=== PATIENT | female | born 2000 | race Caucasian/White ===

== ENCOUNTER 2024-07-08 08:09 | Day surgery (SDC) | payer MEDICAID ==
[2024-07-08] VITALS (9 sets, daily range): BP systolic 10–134; BP diastolic 44–78; PULSE 35–99; RESP 12–60; O2SAT 98–100
[~2024-07-08] VITALS: Ht 154.9 cm; Wt 45.4 kg
[~2024-07-08 08:09] MED LIST: ERGO500093; MAGN400C PO
[2024-07-08] MEDS ORDERED: fentaNYL/PF 50MCG/1 ML 2ML syringe ONE ×2 (09:16→11:04)
[2024-07-08] MEDS ORDERED: MIDAZolam 1 MG/ML 5ML VIAL ONE ×2 (09:17→11:05)
[2024-07-08] MEDS ORDERED: diphenhydrAMINE 50 mg/ml inj ONE (09:17)
[2024-07-08] MEDS ORDERED: LIDOcaine 2% Viscous 15ml cup ONE (09:17)
[2024-07-08] MEDS ORDERED: LIDOcaine 2% (20mg/ml) 5ml vial ONE (11:05)
[2024-07-08] MEDS ORDERED: propofol inj 20 ML IV ONE ×2 (11:05→12:13)
== END 2024-07-08 13:07 | disposition home or self-care (01) ==
LOC: GI LAB 08:09
PROVIDERS: ATTEND Internal Medicine Gastroenterology
DX: R10.30 Lower abdominal pain, unspecified (principal); R14.0 Abdominal distension (gaseous); R10.13 Epigastric pain; R10.33 Periumbilical pain; K63.89 Other specified diseases of intestine; K51.20 Ulcerative (chronic) proctitis without complications; Z79.899 Other long term (current) drug therapy
CPT/HCPCS: 43239; 45380; J1200; J2003; J2250; J2704; J3010; J7030; Z7512; 43235; 99152; A4620